=== PATIENT | female | born 1985 | race Caucasian/White ===

== ENCOUNTER 2018-01-25 16:54 | Emergency (ER) | END 2018-01-25 20:04 | disposition home or self-care (01) ==

== ENCOUNTER 2018-06-04 18:22 | Emergency (ER) | END 2018-06-04 21:10 | disposition home or self-care (01) ==

== ENCOUNTER 2019-06-06 20:21 | Emergency (ER) | payer OTHER ==
[~2019-06-06] VITALS: Ht 154.9 cm; Wt 48.5 kg
[~2019-06-06 20:21] MED LIST: ALPR0.5T PO; IBUP-1561 PO; LORA1TAB PO
[2019-06-06 20:29] VITALS: Ht 154.9 cm; Wt 48.5 kg
[2019-06-06] MEDS ORDERED: IBUPROFEN 600 MG TAB PO ONE (23:30)
[2019-06-07 00:49] VITALS: BP 120/70; PULSE 88; RESP 17
== END 2019-06-07 00:49 | disposition home or self-care (01) ==
LOC: FTE 20:21
DX: T62.91XA Toxic effect of unspecified noxious substance eaten as food, accidental (unintentional), initial encounter (principal)
CPT/HCPCS: 81001; 81003; 81025; Z7610; 99283